=== PATIENT | female | born 1960 | race Two or more races ===

== ENCOUNTER 2020-01-06 09:49 | Inpatient (IN) | payer OTHER ==
[~2020-01-06] VITALS: Ht 167.6 cm; Wt 68.0 kg
[2020-01-06] MEDS ORDERED: COZAAR100 MG PO (18:36)
[2020-01-06] MEDS ORDERED: JANUMET 50-1,01 EACH PO (18:37)
== END 2020-01-15 13:41 | disposition home or self-care (01) | DRG 543 ==
LOC: ER 09:49 → SEC-K 19:25 → SURH 19:25
PROVIDERS: ADMIT Internal Medicine; ATTEND Internal Medicine
PROC: B02BZZZ Computerized Tomography (CT Scan) of Spinal Cord (ICD-10-PCS; 2020-01-06)
PROC: BW21ZZZ Computerized Tomography (CT Scan) of Abdomen and Pelvis (ICD-10-PCS; 2020-01-06)
PROC: CW1N1ZZ Planar Nuclear Medicine Imaging of Whole Body using Technetium 99m (Tc-99m) (ICD-10-PCS; 2020-01-06)
PROC: CB2YYZZ Tomographic (Tomo) Nuclear Medicine Imaging of Respiratory System using Other Radionuclide (ICD-10-PCS; 2020-01-06)
PROC: B03BZZZ Magnetic Resonance Imaging (MRI) of Spinal Cord (ICD-10-PCS; principal; 2020-01-08)
DX: C79.51 Secondary malignant neoplasm of bone (principal); C77.3 Secondary and unspecified malignant neoplasm of axilla and upper limb lymph nodes; J98.11 Atelectasis; M84.58XA Pathological fracture in neoplastic disease, other specified site, initial encounter for fracture; E11.9 Type 2 diabetes mellitus without complications; C50.411 Malignant neoplasm of upper-outer quadrant of right female breast; Z17.0 Estrogen receptor positive status [ER+]; D63.0 Anemia in neoplastic disease; I13.10 Hypertensive heart and chronic kidney disease without heart failure, with stage 1 through stage 4 chronic kidney disease, or unspecified chronic kidney disease; N18.3 Chronic kidney disease, stage 3 (moderate)
CPT/HCPCS: 72148

== ENCOUNTER 2021-08-01 18:23 | Inpatient (IN) | payer OTHER ==
[~2021-08-01] VITALS: Ht 162.6 cm; Wt 79.4 kg
[~2021-08-01 18:23] MED LIST: COZAAR100 MG PO; JANUMET 50-1,01 EACH PO
[2021-08-07] MEDS ORDERED: AMLODIPINE BESYL5 MG (15:47)
[2021-08-07] MEDS ORDERED: DOXAZOSIN MESYLA4 MG (15:47)
[2021-08-07] MEDS ORDERED: ATORVASTATIN CA20 MG (15:47)
[2021-08-07] MEDS ORDERED: PANTOPRAZOLE SO40 MG (15:48)
[2021-08-07] MEDS ORDERED: LEVOTHYROXINE50 MCG (15:48)
[2021-08-07] MEDS ORDERED: LETROZOLE2.5 MG (15:48)
[2021-08-07] MEDS ORDERED: GABAPENTIN300 M2 (15:48)
[2021-08-07] MEDS ORDERED: ZOLEDRONIC4 MG/100 M (15:48)
== END 2021-08-17 14:03 | disposition home or self-care (01) | DRG 543 ==
LOC: ER 18:23 → SURG 23:14 → MEDI 23:14 → SURG 08-02 00:11 → MEDJ 08-08 16:19 → MEDI 08-08 22:05
PROVIDERS: ADMIT Internal Medicine; ATTEND Internal Medicine
PROC: B24BZZZ Ultrasonography of Heart with Aorta (ICD-10-PCS; 2021-08-01)
PROC: 30233N1 Transfusion of Nonautologous Red Blood Cells into Peripheral Vein, Percutaneous Approach (ICD-10-PCS; principal; 2021-08-02)
PROC: BW21ZZZ Computerized Tomography (CT Scan) of Abdomen and Pelvis (ICD-10-PCS; 2021-08-02)
PROC: 02HV33Z Insertion of Infusion Device into Superior Vena Cava, Percutaneous Approach (ICD-10-PCS; 2021-08-05)
PROC: BT4JZZZ Ultrasonography of Kidneys and Bladder (ICD-10-PCS; 2021-08-06)
PROC: 0TJB8ZZ Inspection of Bladder, Via Natural or Artificial Opening Endoscopic (ICD-10-PCS; 2021-08-09)
PROC: BW28ZZZ Computerized Tomography (CT Scan) of Head (ICD-10-PCS; 2021-08-10)
PROC: BW24ZZZ Computerized Tomography (CT Scan) of Chest and Abdomen (ICD-10-PCS; 2021-08-10)
PROC: BH41ZZZ Ultrasonography of Left Breast (ICD-10-PCS; 2021-08-10)
DX: C79.51 Secondary malignant neoplasm of bone (principal); D63.0 Anemia in neoplastic disease; N17.8 Other acute kidney failure; D63.1 Anemia in chronic kidney disease; N39.0 Urinary tract infection, site not specified; N13.8 Other obstructive and reflux uropathy; J90 Pleural effusion, not elsewhere classified; L89.152 Pressure ulcer of sacral region, stage 2; L08.89 Other specified local infections of the skin and subcutaneous tissue; R31.0 Gross hematuria; N32.89 Other specified disorders of bladder; I12.9 Hypertensive chronic kidney disease with stage 1 through stage 4 chronic kidney disease, or unspecified chronic kidney disease; E11.22 Type 2 diabetes mellitus with diabetic chronic kidney disease; N18.30 Chronic kidney disease, stage 3 unspecified; E66.9 Obesity, unspecified; G89.3 Neoplasm related pain (acute) (chronic); Z85.3 Personal history of malignant neoplasm of breast; Z79.4 Long term (current) use of insulin; Z20.822 Contact with and (suspected) exposure to COVID-19